=== PATIENT | female | born 1970 | race Caucasian/White ===

== ENCOUNTER 2021-12-19 18:41 | Emergency (ER) | payer SELFPAY ==
[~2021-12-19] VITALS: Ht 160 cm; Wt 90.7 kg
--- NOTE | 2021-12-19 19:04 | NUR ---
Dr. Ronuqillo at bedside for MSE.
[2021-12-19] MEDS ORDERED: HYDROCODONE/APAP 5-325MG TABLET PO ONE ×2 (19:15→20:30)
[2021-12-19] MEDS ORDERED: HYDROCODONE/APAP 5-325MG TABLET ONE ×2 (19:16→20:27)
--- NOTE | 2021-12-19 19:45 | NUR ---
Xray at bedside.
--- NOTE | 2021-12-19 20:40 | NUR ---
Pt out of ER for CT.
--- NOTE | 2021-12-19 21:06 | NUR ---
Jayda perdue in ED - 12/19/21 at 2118 by ENMANUEL Pt back to ER from CT.
--- NOTE | 2021-12-19 21:18 | NUR ---
Pt back to ER from CT.
[2021-12-19] MEDS ORDERED: HYDR-3980 PO (21:39)
--- NOTE | 2021-12-19 21:57 | NUR ---
Patient discharged to home in stable condition. Written and verbal after care instructions given. Patient verbalizes understanding of instructions. Stressed follow up or return to ER for worsening s/s. Patient out of ER with steady gait, no acute signs of distress, VSS, all belongings taken, instructed not to drive, to be driven home by daughter, provided with copies of CT results and CD of images.
[2021-12-19 21:58] VITALS: BP 149/80
== END 2021-12-19 22:10 | disposition home or self-care (01) ==
LOC: ER 18:41
DX: S06.0X1A Concussion with loss of consciousness of 30 minutes or less, initial encounter (principal); R40.2362 Coma scale, best motor response, obeys commands, at arrival to emergency department; R40.2252 Coma scale, best verbal response, oriented, at arrival to emergency department; R40.2142 Coma scale, eyes open, spontaneous, at arrival to emergency department; S16.1XXA Strain of muscle, fascia and tendon at neck level, initial encounter; S92.002A Unspecified fracture of left calcaneus, initial encounter for closed fracture; V43.62XA Car passenger injured in collision with other type car in traffic accident, initial encounter; Y92.410 Unspecified street and highway as the place of occurrence of the external cause; M50.322 Other cervical disc degeneration at C5-C6 level; M41.84 Other forms of scoliosis, thoracic region; M51.36 Other intervertebral disc degeneration, lumbar region; M48.061 Spinal stenosis, lumbar region without neurogenic claudication; M62.838 Other muscle spasm
CPT/HCPCS: 70450; 72125; 72131; 73610; A4663